=== PATIENT | female | born 1950 | race American Indian/Alaskan Native ===

== ENCOUNTER 2016-12-29 06:24 | Outpatient (CLI) | payer MEDICARE ==
[2016-12-29] MEDS ORDERED: LEXISCAN IV ONE ×2 (08:53→09:30)
[2016-12-29 13:35] VITALS: BP 165/94
== END 2016-12-29 06:25 | disposition home or self-care (01) ==
LOC: CARD 06:24
PROVIDERS: ATTEND Internal Medicine
DX: R94.31 Abnormal electrocardiogram [ECG] [EKG] (principal); M79.603 Pain in arm, unspecified
CPT/HCPCS: 78452; 93017; A9502; J2785